=== PATIENT | male | born 1960 | race Caucasian/White ===

== ENCOUNTER 2017-09-20 09:29 | Emergency (ER) | payer BC ==
[2017-09-20 10:21] VITALS: BP 144/87
[2017-09-20] MEDS ORDERED: Aspirin Low Dose CHEW TAB* 81 MG PO ONE (10:59)
--- NOTE | 2017-09-20 10:59 | UC ---
UC General HPI - HPI Summary HPI Summary: Patient presents with three day onset complaints of chest congestion and coughing, upper abdominal and chest pain with coughing, associated headache, and left arm pain. He states he saw his PCP on Thursday, and was given bentyl for the abdominal pain (gas), and he states it has not helped him at all. He states his cough has gotten worse, Thursday and , and now he has chest pain when he coughs he motions over the sternum, he also notes his left arm pain this morning as well. Patient states he started to have chills last night. - History of Current Complaint Chief Complaint: UCGeneralIllness Stated Complaint: COUGH Time Seen by Provider: 09/20/17 10:32 Hx Obtained From: Patient Onset/Duration: Gradual Onset, Lasting Days Timing: Constant Onset Severity: Mild Current Severity: Moderate Pain Intensity: 8 - Allergy/Home Medications Allergies/Adverse Reactions: Allergies Allergy/AdvReac Type Severity Reaction Status Date / Time cillins Allergy Rash Uncoded 09/20/17 10:16 Home Medications: Home Medications Aleve 1 tab PO BEDTIME 09/20/17 [History Confirmed 09/20/17] Pepcid Complete Tablet Chew 1 tab PO DAILY 09/20/17 [History Confirmed 09/20/17] PMH/Surg Hx/FS Hx/Imm Hx Previously Healthy: Yes GI/ History: Gastroesophageal Reflux - Surgical History Surgical History: None - Family History Known Family History: Positive: Cardiac Disease, Hypertension, Other - lymphoma (paternal) - Social History Occupation: Employed Full-time Lives: With Family Alcohol Use: Occasionally Substance Use Type: None Smoking Status (MU): Never Smoked Tobacco Review of Systems Constitutional: Chills, Fatigue Skin: Negative Eyes: Negative ENT: Negative Respiratory: Cough Cardiovascular: Chest Pain Gastrointestinal: Abdominal Pain Genitourinary: Negative Motor: Negative Neurovascular: Negative Musculoskeletal: Myalgia, Other: - left arm pain Neurological: Negative Psychological: Negative Is Patient Immunocompromised?: No All Other Systems Reviewed And Are Negative: Yes Physical Exam Triage Information Reviewed: Yes Appearance: Ill-Appearing Vital Signs: Initial Vital Signs Temp 99 F 09/20/17 10:18 Pulse 118 09/20/17 10:18 Resp 20 09/20/17 10:18 BP 144/87 09/20/17 10:18 Pulse Ox 99 09/20/17 10:18 Vital Signs Reviewed: Yes Eye Exam: Normal Eyes: Positive: Conjunctiva Clear ENT: Positive: Pharyngeal erythema, TMs normal, Uvula midline Neck exam: Normal Neck: Positive: Supple, No Lymphadenopathy Respiratory Exam: Normal Respiratory: Positive: Lungs clear, Normal breath sounds, No respiratory distress, No accessory muscle use Cardiovascular Exam: Normal Cardiovascular: Positive: RRR, No Murmur Abdominal Exam: Normal Musculoskeletal Exam: Normal Neurological Exam: Normal Skin Exam: Normal Course/Dx - Course Course Of Treatment: Patient presents with atypical complaints of chest pain, and left arm pain. Ekg was obtained and read by Candida Zaragoza as sinus rhythm. Chest xray was negative, and influenza obtaiend. He was given aspirin 324 mg chewable in the department and sent to the ER for further evaluation. He also presents with influenza like illness prior to this morning when he developed chest pain. His father had history of CAD, s/p CABG. He was in agreement to ambulance transport to the ER.At the time of tranfer the patient was hemodynamically stable. - Differential Dx - Multi-Symptom Differential Diagnoses: Other - chest pain influenza like illness Provider Diagnoses: chest pain. influenza like illness Discharge - Discharge Plan Condition: Stable Disposition: OTHER Discharge Disposition Comment: Patient was transferred to the ER via [facility]. Patient Education Materials: Chest Pain (ED) Referrals: Yakov Bolanos MD [Primary Care Provider] -
--- NOTE | 2017-09-20 11:20 | RAD ---
INDICATION: Cough x3 days COMPARISON: None TECHNIQUE: PA and lateral views of the chest were obtained. FINDINGS: The heart and mediastinum are normal in size and contour. The lungs are grossly clear. There is no evidence of large pleural effusion. Visualized bones are normal for the patient's age. There is no radiographic evidence of free air beneath the diaphragm IMPRESSION: No radiographic evidence of acute cardiopulmonary disease.
== END 2017-09-20 11:37 ==
LOC: UCEAST 09:29
DX: R07.89 Other chest pain (principal); J11.1 Influenza due to unidentified influenza virus with other respiratory manifestations; K21.9 Gastro-esophageal reflux disease without esophagitis; Z88.0 Allergy status to penicillin
CPT/HCPCS: 71046; 87502; 93005; 99203; A9270-GY; G0463

== ENCOUNTER 2017-09-20 11:46 | Emergency (ER) | payer BC ==
[2017-09-20] MEDS ORDERED: NS 0.9% 1000 ML* 1,000 ML IV ONE (11:55)
[2017-09-20 12:17] LABS: ABS Basophils 0 10^3/ul (0-0.2); ABS Eosinophils 0.1 10^3/ul (0-0.6); ABS Lymphocytes 0.5 10^3/ul (1.0-4.8); ABS Monocytes 0.7 10^3/ul (0-0.8); ABS Neutrophils 7.6 10^3/ul (1.5-7.7); ABS Nucleated RBC 0 10^3/ul; Eosinophil % 0.7 % (0-6); Hematocrit 44 % (42-52); Lymphocyte % 5.5 % (25-47); Mean Corpuscular HGB Conc 34 g/dl (31-36); Mean Corpuscular Hemoglobin 31 pg (27-31); Mean Corpuscular Volume 90 fL (80-94); Mean Platelet Volume 7 um3 (7.4-10.4); Nucleated Red Blood Cells % 0; Platelet Count 197 10^3/ul (150-450); Red Blood Count 4.85 10^6/ul (4.0-5.4); Red Cell Distribution Width 13 % (10.5-15)
--- NOTE | 2017-09-20 12:21 | ED ---
Influenza-Like Illness - HPI Summary HPI Summary: The patient is an otherwise healthy 57-year-old male who presents to the ED with flulike symptoms. He states he was ill approximately 3 weeks ago, but improved. 3 days ago he came down with sweats, chills, body aches, congestion, headache and now waking this morning with substernal chest pain radiating upward. Endorses slight left arm pain, which has since resolved. Denies any numbness or tingling. Unknown if he has been febrile, but on arrival he is at 101. Has been taking ibuprofen for relief of symptoms. He states yesterday he had some upper bilateral abdominal pain to which he was able to see his doctor yesterday who prescribed him a gas medication. He works at a [employer] in endorses sick contacts, specifically the influenza and pneumonia. He obtained the flu vaccine this year. Has no significant cardiac history, but father has a CAD s/p CABG. He is sinus tachycardia at 111 on arrival and meets sepsis protocol. - History of Current Complaint Chief Complaint: EDFluSymptoms Time Seen by Provider: 09/20/17 11:49 Hx Obtained From: Patient Onset/Duration: Sudden Onset - V Severity: Moderate Associated Signs & Symptoms: Fever, T Max, F/C Related Hx: Possible Flu/Infectious Exposure - Allergy/Home Medications Allergies/Adverse Reactions: Allergies Allergy/AdvReac Type Severity Reaction Status Date / Time cillins Allergy Intermediate Rash Uncoded 09/20/17 12:43 PMH/Surg Hx/FS Hx/Imm Hx Previously Healthy: Yes Infectious Disease History: No Infectious Disease History: Denies: Traveled Outside the [place] in Last 30 Days - Family History Known Family History: Positive: Cardiac Disease, Hypertension, Other - lymphoma (paternal) - Social History Occupation: Employed Full-time Lives: With Family Alcohol Use: Occasionally Hx Substance Use: No Substance Use Type: Reports: None Hx Tobacco Use: No Smoking Status (MU): Never Smoked Tobacco Review of Systems Positive: Fever, Chills, Fatigue Negative: Photophobia, Blurred Vision Negative: Sore Throat, Nasal Discharge Positive: Chest Pain Positive: Shortness Of Breath, Cough Positive: Abdominal Pain - upper bilateral quadrants. Negative: Vomiting, Diarrhea, Nausea Skin: Negative Positive: Headache All Other Systems Reviewed And Are Negative: Yes Physical Exam Triage Information Reviewed: Yes Vital Signs On Initial Exam: Initial Vitals Temp Pulse Resp BP Pulse Ox 101.9 F 109 16 122/76 98 09/20/17 11:47 09/20/17 11:47 09/20/17 11:47 09/20/17 11:47 09/20/17 11:47 Vital Signs Reviewed: Yes Appearance: Positive: Well-Nourished, Ill-Appearing Skin: Positive: Warm, Skin Color Reflects Adequate Perfusion Head/Face: Positive: Normal Head/Face Inspection Eyes: Positive: EOMI, TATIANA, Conjunctiva Clear Neck: Positive: Supple, No Lymphadenopathy Cardiovascular: Positive: RRR Musculoskeletal: Positive: Normal, Strength/ROM Intact Neurological: Positive: Speech Normal Psychiatric: Positive: Affect/Mood Appropriate AVPU Assessment: Alert Diagnostics - Vital Signs Vital Signs Temp Pulse Resp BP Pulse Ox 09/20/17 12:15 98 09/20/17 11:53 115 96 09/20/17 11:51 122/76 09/20/17 11:47 101.9 F 109 16 122/76 98 - Laboratory Lab Results: Lab Results 09/20/17 Range/Units 12:05 WBC 9.0 (3.5-10.8) 10^3/ul RBC 4.85 (4.0-5.4) 10^6/ul Hgb 15.0 (14.0-18.0) g/dl Hct 44 (42-52) % MCV 90 (80-94) fL MCH 31 (27-31) pg MCHC 34 (31-36) g/dl RDW 13 (10.5-15) % Plt Count 197 (150-450) 10^3/ul MPV 7 L (7.4-10.4) um3 Neut % (Auto) 85.2 H (38-83) % Lymph % (Auto) 5.5 L (25-47) % [place] % (Auto) 8.1 (1-9) % Eos % (Auto) 0.7 (0-6) % Baso % (Auto) 0.5 (0-2) % Absolute Neuts (auto) 7.6 (1.5-7.7) 10^3/ul Absolute Lymphs (auto) 0.5 L (1.0-4.8) 10^3/ul Absolute Monos (auto) 0.7 (0-0.8) 10^3/ul Absolute Eos (auto) 0.1 (0-0.6) 10^3/ul Absolute Basos (auto) 0 (0-0.2) 10^3/ul Absolute Nucleated RBC 0 10^3/ul Nucleated RBC % 0 Result Diagrams: 09/20/17 12:05 09/20/17 12:05 Lab Statement: Any lab studies that have been ordered have been reviewed, and results considered in the medical decision making process. Flu Symptom Course/Dx - Course Course Of Treatment: During the course of treatment, the patient is evaluated for substernal chest pain, worse with cough. Denies cardiac history, but endorses family history. Flu obtained at [facility] and positive for influenza B. Patient meets sepsis protocol at tachycardia 111 and temp at 101 on arrival. He is given 2 L normal saline. Labs obtained including troponin to rule out co-comittent cardiac pathology. - Diagnoses Differential Diagnosis/HQI/PQRI: Positive: Influenza Provider Diagnoses: Influenza A Discharge - Discharge Plan Condition: Stable Disposition: HOME Prescriptions: Oseltamivir CAP* [Tamiflu CAP*] 75 mg PO BID #9 cap Patient Education Materials: Influenza (ED) Forms: *Work Release Referrals: Yakov Bolanos MD [Primary Care Provider] - Additional Instructions: Drink plenty of fluids Off work 2 days Chicken noodle soup, applesauce, bananas, rice, toast Humidifier in the home will help Tylenol 650 mg 3 times daily Tamiflu twice daily, second dose is this evening
[2017-09-20 12:30] LABS: EGFR Non-African American 82.3 (>60)
[2017-09-20 12:54] LABS: INR 0.96 (0.77-1.02)
[2017-09-20 13:28] LABS: Urine Appearance Clear; Urine Blood Negative (Negative); Urine Color Yellow; Urine Ketones Negative (Negative); Urine Protein Negative (Negative); Urine Specific Gravity 1.018 (1.010-1.030); Urine Urobilinogen Negative (Negative)
[2017-09-20] MEDS ORDERED: Oseltamivir CAP* 75 MG CAP PO ONE (13:32)
[2017-09-20] MEDS ORDERED: Acetaminophen TAB* 325 MG PO ONE (13:54)
[2017-09-20 14:34] VITALS: BP 144/73
== END 2017-09-20 14:34 | disposition home or self-care (01) ==
LOC: ED 11:46
DX: J09.X2 Influenza due to identified novel influenza A virus with other respiratory manifestations (principal); R07.9 Chest pain, unspecified; R06.02 Shortness of breath; R05 Cough; R10.84 Generalized abdominal pain; R51 Headache
CPT/HCPCS: 36415; 80053; 81003; 82553; 83605; 83735; 84484; 85025; 85610; 87040; 93005; 99283; A9270-GY